=== PATIENT | female | born 1995 | race Caucasian/White ===

== ENCOUNTER → 2017-10-26 12:23 | Outpatient (CLI) | payer MEDICAID, SELFPAY ==
[2017-10-26 17:51] LABS: Rubella IgG 362.6 IU/mL
[2017-10-29 09:19] LABS: Hep B Surface Antibodies Reactive (.); V-Zoster IgG (Immunity) 939 index (Immune >165)
== END ==
PROVIDERS: Family Provider Nurse Practitioner; PCP Nurse Practitioner; Visit Provider Nurse Practitioner
DX: Z01.84 Encounter for antibody response examination (principal)
CPT/HCPCS: 86706; 86735; 86762; 86787

== ENCOUNTER 2018-03-27 18:09 | Emergency (ER) | payer MEDICAID, SELFPAY ==
[2018-03-27 18:10] VITALS: BP 120/80; PULSE 87; RESP 16; TEMP 36.7; O2SAT 98; BMI 24.6
--- NOTE | 2018-03-27 18:57 | ED.DCSUM_ITS ---
- ER Visit Summary Date of Service: 03/27/18 Chief Complaint: [] [place] tooth extraction a week ago bilateral lower extraction site pain History of Present Illness: The patient is a 22 F [] 4 wisdom teeth extracted a week ago, she has pain to bilateral lower extraction sites no fever no cough no drainage no trauma no odor or smell persistent pain she is concerned about dry socket her dentist would not call her back but denies no other complaints using ibuprofen 800 Physical Examination: [] Vital signs are normal afebrile General, no distress resting comfortably HEENT is generally unremarkable with the extraction sites all 4 of them are intact there is no bleeding drainage or signs of infection is not clear if she actually has dry socket the floor of the mouth tongue and the rest of the HEENT in general medical exam unremarkable The neck is supple no adenopathy Cardiovascular, regular rate and rhythm Lungs, clear bilateral Abdomen, soft nontender Extremities, no clubbing cyanosis or edema Neurologic, awake alert answering questions appropriately moving all 4 ex tremities Test Results: [] Emergency Department Course and Treatment: [] the above to the patient given all of the above provide her dry socket paste to use, continue the nonsteroidals, [place] 4 tablets and she will follow-up with her dentist as soon as possible Treatment Plan: [] Disposition: [] Home stable Impression: [] Dental site extraction pain This note was generated with [employer] dictation software. It may contain incorrect words, spelling, and punctuation that were not noted in review of the chart prior to signing ED Disposition - Plan for ED Patient: Chief Complaint: Dental Referrals: Mouna Chacko, [facility] [Primary Care Provider] -
--- NOTE | 2018-03-27 18:57 | ED.DEP ---
ED Disposition - Plan for ED Patient: Chief Complaint: Dental Instructions: ED Tooth Pain Prescriptions: Hydrocodone Bitart/Apap 5-325 [[place] 5MG-325MG] 1 tab PO Q4H PRN PRN 2 Days #7 tab PRN Reason: Pain Referrals: Mouna Chacko, [facility] [employer] [facility] [Primary Care Provider] -
--- NOTE | 2018-03-27 18:58 | DCINST.ED_ITS ---
ED Disposition - Plan for ED Patient: Chief Complaint: Dental Instructions: ED Tooth Pain Prescriptions: Hydrocodone Bitart/Apap 5-325 [[place] 5MG-325MG] 1 tab PO Q4H PRN PRN 2 Days #7 tab PRN Reason: Pain Referrals: Mouna Chacko, [employer] [Primary Care Provider] -
[2018-03-27] MEDS: HYDROcodone Bitartrate/Apap 5/325 Tablet PO (19:04)
[2018-03-27 19:19] VITALS: BP 114/80; PULSE 89; RESP 16; O2SAT 97
== END 2018-03-27 19:20 | disposition home or self-care (01) ==
LOC: ED 19:08
PROVIDERS: Emergency Provider Emergency Medicine; Family Provider Nurse Practitioner; PCP Nurse Practitioner
DX: G89.18 Other acute postprocedural pain (principal); Z79.899 Other long term (current) drug therapy
CPT/HCPCS: 99283